=== PATIENT | male | born 1955 | race Caucasian/White ===

== ENCOUNTER 2017-08-07 20:22 | Inpatient (IN) | payer BC, OTHER ==
[~2017-08-07 20:22] MED LIST: ASPI81TA82 PO; FENO54TA PO; NIAC50TA PO
[2017-08-07] MEDS ORDERED: IOHEXOL 350 MG/ML 10 ML VIAL (for RAD DIAG) IVCONTRAST ONE (20:23)
[2017-08-07 20:30] VITALS: BP 130/74; PULSE 82; RESP 20; TEMP 98; O2SAT 97
[2017-08-07] MEDS ORDERED: SODIUM CHLOR 0.9% 1000 ML INJ 1,000 ML IV SCH (21:07)
[2017-08-07 21:10] VITALS: BP 123/79; PULSE 74; RESP 18; O2SAT 96
[2017-08-07] MEDS ORDERED: MORPHINE SULFATE 4 MG/ML INJ IV PUSH ONE (21:15)
[2017-08-07] MEDS ORDERED: PANTOPRAZOLE SODIUM 40 MG VIAL IVP ONE (21:15)
[2017-08-07] MEDS ORDERED: ONDANSETRON HCL 4 MG/2 ML VIAL IVP ONE (21:15)
[2017-08-07] MEDS ORDERED: SODIUM CHLORIDE 0.9% FLUSH 10 ML FLUSH IV FLUSH PRN ×2 (21:15→23:15)
--- NOTE | 2017-08-07 21:15 | PD ---
HPI Chief Complaint: Abdominal Pain Time Seen by Provider: 21:04 Travel History International Travel<30 days: No Contact w/Intl Traveler<30days: No Traveled to known affect area: No History of Present Illness HPI 62-year-old male complains of abdominal pain, nausea vomiting and diarrhea. Patient states that the symptoms started 2 weeks ago and got worse since then. Patient states abdominal pain and cramping pain localized upper abdomen. Patient denies any pain radiation. Patient denies any headache. Patient denies any chest pain or shortness of breath. Patient denies dysuria frequency. Patient denies any fever chills. Patient has history hypertension, diabetes, hyperlipidemia. Patient status post appendectomy. On a scale of 1- 10 the pain is a 6. PFSH Past Medical History Hx Anticoagulant Therapy: Yes (ASA 81 MGS) High Cholesterol: Yes Diabetes: Yes Diminished Hearing: No Social History Alcohol Use: Yes (VERY RARELY) Tobacco Use: No Allergies-Medications (Allergen,Severity, Reaction): Coded Allergies: No Known Allergies (Verified Adverse Reaction, Unknown, 08/07/17) Reported Meds & Prescriptions Reported Meds & Active Scripts Active Reported Invokana (Canagliflozin) 100 Mg Tab 100 Mg PO DAILY Take before 1st meal of day. Aspirin 81 Mg Chew 81 Mg CHEW DAILY Glipizide 5 Mg Tab 5 Mg PO BIDAC Take 30 minutes before a meal Atorvastatin (Atorvastatin Calcium) 40 Mg Tab 40 Mg PO HS Lisinopril 20 Mg Tab 20 Mg PO DAILY Metformin (Metformin HCl) 1,000 Mg Tab 1,000 Mg PO BIDPC Review of Systems General / Constitutional: No: Fever Eyes: No: Visual changes HENT: No: Headaches Cardiovascular: No: Chest Pain or Discomfort Respiratory: No: Shortness of Breath Gastrointestinal: Positive: Nausea, Vomiting, Diarrhea, Abdominal Pain Genitourinary: No: Dysuria Musculoskeletal: No: Pain Skin: No Rash Neurologic: No: Weakness Psychiatric: No: Depression Endocrine: No: Polydipsia Hematologic/Lymphatic: No: Easy Bruising Physical Exam Narrative GENERAL: Well-nourished, well-developed patient. SKIN: Focused skin assessment warm/dry. HEAD: Normocephalic. EYES: No scleral icterus. No injection or drainage. NECK: Supple, trachea midline. No JVD or lymphadenopathy. CARDIOVASCULAR: Regular rate and rhythm without murmurs, gallops, or rubs. RESPIRATORY: Breath sounds equal bilaterally. No accessory muscle use. GASTROINTESTINAL: Abdomen soft, nondistended. Patient has moderate tenderness to palpation epigastric area. No rebound tenderness. No mass. MUSCULOSKELETAL: No cyanosis, or edema. BACK: Nontender without obvious deformity. No CVA tenderness. Neurologic exam normal. Data Data Last Documented VS Vital Signs Date Time Temp Pulse Resp B/P (MAP) Pulse Ox O2 Delivery O2 Flow Rate FiO2 08/07/17 22:08 80 16 113/73 (86) 96 Room Air 08/07/17 20:30 98.0 Orders Orders Complete Blood Count With Diff (08/07/17 21:07) Comprehensive Metabolic Panel (08/07/17 21:) Lipase (08/07/17:07) Prothrombin Time / Inr (Pt) (08/07/17:) Act Partial Throm Time (Ptt) (08/07/17:) Urinalysis - C+S If Indicated (08/07/17 21:07) Ct Abd/Pel W Iv Contrast(Rout) (08/07/17 21:07) Iv Access Insert/Monitor (08/07/17 21:07) Ecg Monitoring (08/07/17 21:07) Oximetry (08/07/17 21:07) Morphine Inj (Morphine Inj) (08/07/17 21:15) Ondansetron Inj (Zofran Inj) (08/07/17 21:15) Pantoprazole Inj (Protonix Inj) (08/07/17 21:15) Sodium Chlor 0.9% 1000 Ml Inj (Ns 1000 M (08/07/17 21:07) Sodium Chloride 0.9% Flush (Ns Flush) (08/07/17 21:15) Iohexol 350 Inj (Omnipaque 350 Inj) (08/07/17 20:23) Piperacil-Tazo 4.5 Gm Premix (Zosyn 4.5 (08/08/17 06:00) Bedside Glucose EMA.CSUGAR (08/07/17 23:07) Blood Glucose Goal (Criteria) (08/07/17 23:07) Hypoglycemia 70 Mg/Dl Or < (08/07/17 23:07) Notify Dr: Other (08/07/17 23:07) Dextrose 50% In Nik (Vial) Inj (D50w (Vi (08/07/17 23:15) Glucagon Inj (Glucagon Inj) (08/07/17 23:15) Insulin Aspart Supplemtl Scale (Novolog (08/08/17 08:00) Admit To Inpatient (08/07/17 ) Vital Signs (Adult) Q4H (08/07/17 23:07) Activity Oob With Assistance (08/07/17 23:07) Intake + Output EMA.QSHIFT (08/07/17 23:07) Diet Npo (08/08/17 Breakfast) Sodium Chlor 0.9% 1000 Ml Inj (Ns 1000 M (08/07/17 23:07) Sodium Chloride 0.9% Flush (Ns Flush) (08/07/17 23:15) Sodium Chloride 0.9% Flush (Ns Flush) (08/08/17 09:00) Ondansetron Inj (Zofran Inj) (08/07/17 23:15) Comprehensive Metabolic Panel (08/08/17 06:00) Complete Blood Count With Diff (08/08/17 06:00) Prothrombin Time / Inr (Pt) (08/08/17 06:00) Pharmacologic Contraindication (08/07/17 23:07) Morphine Inj (Morphine Inj) (08/07/17 23:15) Docusate Sodium-Senna (Yamilet-Colace) (08/08/17 09:00) Magnesium Hydroxide Liq (Milk Of Magnesi (08/07/17 23:15) Sennosides (Senokot) (08/07/17 23:15) Bisacodyl Supp (Dulcolax Supp) (08/07/17 23:15) Lactulose Liq (Lactulose Liq) (08/07/17 23:15) Inpatient Certification (08/07/17 ) Abdomen, Flat & Upright (08/08/17 06:00) Labs Laboratory Tests Test 08/07/17 21:10 White Blood Count 20.3 TH/MM3 Red Blood Count 5.43 MIL/MM3 Hemoglobin 16.5 GM/DL Hematocrit 48.4 % Mean Corpuscular Volume 89.2 FL Mean Corpuscular Hemoglobin 30.3 PG Mean Corpuscular Hemoglobin Concent 34.0 % Red Cell Distribution Width 13.0 % Platelet Count 287 TH/MM3 Mean Platelet Volume 7.8 FL Neutrophils (%) (Auto) 86.9 % Lymphocytes (%) (Auto) 6.9 % Monocytes (%) (Auto) 2.8 % Eosinophils (%) (Auto) 1.1 % Basophils (%) (Auto) 2.3 % Neutrophils # (Auto) 17.6 TH/MM3 Lymphocytes # (Auto) 1.4 TH/MM3 Monocytes # (Auto) 0.6 TH/MM3 Eosinophils # (Auto) 0.2 TH/MM3 Basophils # (Auto) 0.5 TH/MM3 CBC Comment DIFF FINAL Differential Comment Prothrombin Time 10.9 SEC Prothromb Time International Ratio 1.1 RATIO Activated Partial Thromboplast Time 23.6 SEC Urine Color YELLOW Urine Turbidity CLEAR Urine pH 5.5 Urine Specific [place] 1.015 Urine Protein NEG mg/dL Urine Glucose (UA) 1000 OR GREATER mg/dL Urine Ketones TRACE mg/dL Urine Occult Blood NEG Urine Nitrite NEG Urine Bilirubin NEG Urine Urobilinogen 0.2 MG/DL Urine Leukocyte Esterase NEG Urine Squamous Epithelial Cells 0-5 /hpf Microscopic Urinalysis Comment CULT NOT INDICATED Blood Urea Nitrogen 16 MG/DL Creatinine 1.10 MG/DL Random Glucose 169 MG/DL Total Protein 8.1 GM/DL Albumin 3.7 GM/DL Calcium Level 8.9 MG/DL Alkaline Phosphatase 57 U/L Aspartate Amino Transf (AST/SGOT) 30 U/L Alanine Aminotransferase (ALT/SGPT) 46 U/L Total Bilirubin 0.7 MG/DL Sodium Level 136 MEQ/L Potassium Level 4.2 MEQ/L Chloride Level 105 MEQ/L Carbon Dioxide Level 23.1 MEQ/L Anion Gap 8 MEQ/L Estimat Glomerular Filtration Rate 67 ML/MIN Lipase 234 U/L [facility] Medical Decision Making Medical Screen Exam Complete: Yes Emergency Medical Condition: Yes Interpretation(s) 22:57 PM. CBC WBC 20.3. 86 neutrophil. CMP within normal limits. UA is negative. CT scan abdomen pelvis shows enteritis with mild ileus. Differential Diagnosis Differential diagnosis including gastritis, PUD, pancreatitis, cholecystitis, colitis, UTI, pyelonephritis, nephrolithiasis. Narrative Course 62-year-old male with upper abdominal pain, nausea vomiting diarrhea. Normal saline solution 1 25 cc an hour. Protonix 40 mg IV. Morphine 2 mg IV. Zofran 4 mg IV. Zosyn and Flagyl IV will be given. Diagnosis Primary Impression: Enteritis Additional Impression: Ileus Admitting Information Admitting Physician Requests: Admit Fareed Gambino MD Aug 07, 2017 21:15
[2017-08-07 21:28] LABS: AUTOMATED NEUTROPHIL # 17.6 TH/MM3 (1.8-7.7); BASOPHIL # 0.5 TH/MM3 (0-0.2); BASOPHIL % 2.3 % (0.0-2.0); EOSINOPHIL # 0.2 TH/MM3 (0-0.4); EOSINOPHIL % 1.1 % (0.0-4.0); HEMATOCRIT 48.4 % (39.0-51.0); HEMOGLOBIN 16.5 GM/DL (13.0-17.0); LYMPH % 6.9 % (9.0-44.0); LYMPHOCYTE # 1.4 TH/MM3 (1.0-4.8); MEAN CELL VOLUME 89.2 FL (80.0-100.0); MEAN CORPUSCULAR HEMOGLOBIN 30.3 PG (27.0-34.0); MEAN PLATELET VOLUME 7.8 FL (7.0-11.0); MONO % 2.8 % (0.0-8.0); MONOCYTE # 0.6 TH/MM3 (0-0.9); NEUT % 86.9 % (16.0-70.0); PLATELET COUNT 287 TH/MM3 (150-450); RED BLOOD COUNT 5.43 MIL/MM3 (4.50-5.90); WHITE BLOOD COUNT 20.3 TH/MM3 (4.0-11.0)
[2017-08-07 21:30] LABS: BILIRUBIN, URINE NEG (NEG); BLOOD, URINE NEG (NEG); GLUCOSE,URINE 1000 OR GREATER mg/dL (NEG); KETONE, URINE TRACE mg/dL (NEG); NITRITE,URINE NEG (NEG); PH, URINE 5.5 (5.0-8.5); URINE COLOR YELLOW (YELLW/STRAW); URINE LEUKOCYTE ESTERASE NEG (NEG)
[2017-08-07 21:34] LABS: SQUAMOUS EPITHELIAL CELL URINE 0-5 /hpf (0-5)
[2017-08-07 21:39] LABS: CHLORIDE 105 MEQ/L (98-107); SODIUM (NA) 136 MEQ/L (136-145)
[2017-08-07 21:43] LABS: ALBUMIN 3.7 GM/DL (3.4-5.0); BICARBONATE 23.1 MEQ/L (21.0-32.0); BLOOD UREA NITROGEN 16 MG/DL (7-18); CALCIUM 8.9 MG/DL (8.5-10.1); GLUCOSE,RANDOM 169 MG/DL (74-106)
[2017-08-07 21:45] LABS: INTERNATIONAL NORMALIZED RATIO 1.1 RATIO; PROTHROMBIN TIME - PATIENT 10.9 SEC (9.8-11.6)
[2017-08-07 21:46] LABS: ALT (GPT) 46 U/L (12-78); AST (GOT) 30 U/L (15-37); GLOMERULAR FILTRATION RATE 67 ML/MIN (>89)
[2017-08-07 21:48] LABS: TOTAL BILIRUBIN ADULT 0.7 MG/DL (0.2-1.0); TOTAL PROTEIN 8.1 GM/DL (6.4-8.2)
[2017-08-07 21:49] LABS: ALKALINE PHOSPHATASE 57 U/L (45-117)
[2017-08-07] MEDS ORDERED: ASPI-516 CHEW (21:50)
[2017-08-07] MEDS ORDERED: CANA100T PO (21:50)
[2017-08-07] MEDS ORDERED: METF1000 PO (21:50)
[2017-08-07] MEDS ORDERED: ATOR40TA16 PO (21:50)
[2017-08-07] MEDS ORDERED: GLIP5TAB8 PO (21:50)
[2017-08-07] MEDS ORDERED: LISI-515 PO (21:50)
[2017-08-07 22:08] VITALS: BP 113/73; PULSE 80; RESP 16; O2SAT 96
--- NOTE | 2017-08-07 22:54 | RADRPT ---
EXAM DATE/TIME: 08/07/2017 22:22 [facility] COMPARISON: No previous studies available for comparison. INDICATIONS : Abdomen pain with nausea and vomiting. IV CONTRAST: 75 cc Omnipaque 350 (iohexol) IV ORAL CONTRAST: No oral contrast ingested. RADIATION DOSE: 18.88 CTDIvol (mGy) MEDICAL HISTORY : Hypercholesterolemia. Diabetes mellitus type 2. SURGICAL HISTORY : None. ENCOUNTER: Initial ACUITY: 2 weeks PAIN SCALE: 6/10 LOCATION: Bilateral abdomen TECHNIQUE: Volumetric scanning of the abdomen and pelvis was performed. Using automated exposure control and ad justment of the mA and/or kV according to patient size, radiation dose was kept as low as reasonably achievable to obtain optimal diagnostic quality images. DICOM format image data is available electro nically for review and comparison. FINDINGS: Limited bases are clear. Mild fatty liver. Spleen, adrenals, pancreas unremarkable. 2.9 cm cyst lower pole right kidney. Left kidney unremarkable. There is a small amount of free fluid in the pelvis. Several air-fluid levels seen in the upper abdom en, probably mild ileus. There is some mild mesenteric edema in the left abdomen near several mildly dilated loops of bowel. No free air. No acute bony abnormalities. CONCLUSION: Probable enteritis with mild ileus in the left abdomen and some mesenteric edema with borderline mura l thickening of small bowel. There is a small amount of fluid between several loops of small bowel in the left midabdomen.. There is some fecalization of small bowel contents on the left. If Abdominal p ain and vomiting persists consider followup examination to exclude obstruction. Bladimir Cao MD on August 07, 2017 at 22:47 Board Certified Radiologist. This report was verified electronically.
[2017-08-07 23:13] VITALS: BP 136/64; PULSE 83; RESP 18; O2SAT 95
[2017-08-07] MEDS ORDERED: MORPHINE SULFATE 2 MG/ML SYRINGE IV PUSH PRN (23:15)
[2017-08-07] MEDS ORDERED: SENNOSIDES 8.6 MG TAB PO PRN (23:15)
[2017-08-07] MEDS ORDERED: ONDANSETRON HCL 4 MG/2 ML VIAL IVP PRN (23:15)
[2017-08-07] MEDS ORDERED: LACTULOSE SYRUP 20 GM/30 ML CUP PO PRN (23:15)
[2017-08-07] MEDS ORDERED: MAGNESIUM HYDROXIDE SUSP 30 ML CUP PO PRN (23:15)
[2017-08-07] MEDS ORDERED: GLUCAGON 1 MG/ML VIAL OTHER PRN (23:15)
[2017-08-07] MEDS ORDERED: DEXTROSE 50% IN WATER 50 ML VIAL(D50) IV PUSH PRN (23:15)
[2017-08-07] MEDS ORDERED: BISACODYL 10 MG SUPP RECTAL PRN (23:15)
[2017-08-07] MEDS: SODIUM CHLOR 0.9% 1000 ML INJ 1,000 ML IV SCH (23:21)
[2017-08-08] VITALS (11 sets, daily range): BP systolic 95–133; BP diastolic 63–86; PULSE 61–82; RESP 15–20; TEMP 96–97.7; O2SAT 93–100
[2017-08-08] MEDS ORDERED: PIPERACIL-TAZO 3.375 GM PREMIX 50 ML IV ONE (00:30)
[2017-08-08] MEDS ORDERED: metroNIDAZOLE 500 MG INJ 100 ML IV ONE (00:30)
[2017-08-08 05:34] LABS: AUTOMATED NEUTROPHIL # 4.3 TH/MM3 (1.8-7.7); BASOPHIL # 0.1 TH/MM3 (0-0.2); BASOPHIL % 0.7 % (0.0-2.0); EOSINOPHIL # 0.3 TH/MM3 (0-0.4); EOSINOPHIL % 3.7 % (0.0-4.0); HEMATOCRIT 37.8 % (39.0-51.0); HEMOGLOBIN 12.4 GM/DL (13.0-17.0); LYMPH % 35.9 % (9.0-44.0); LYMPHOCYTE # 2.9 TH/MM3 (1.0-4.8); MEAN CELL VOLUME 92.6 FL (80.0-100.0); MEAN CORPUSCULAR HEMOGLOBIN 30.3 PG (27.0-34.0); MEAN CORPUSCULAR HGB CONC 32.7 % (32.0-36.0); MEAN PLATELET VOLUME 7.7 FL (7.0-11.0); MONO % 5.4 % (0.0-8.0); MONOCYTE # 0.4 TH/MM3 (0-0.9); NEUT % 54.3 % (16.0-70.0); PLATELET COUNT 280 TH/MM3 (150-450); RED BLOOD COUNT 4.08 MIL/MM3 (4.50-5.90); RED CELL DISTRIBUTION WIDTH 11.8 % (11.6-17.2)
[2017-08-08 05:42] LABS: CHLORIDE 103 MEQ/L (98-107); SODIUM (NA) 139 MEQ/L (136-145)
[2017-08-08 05:44] LABS: PROTHROMBIN TIME - PATIENT 10.2 SEC (9.8-11.6)
[2017-08-08 05:45] LABS: ALBUMIN 3.7 GM/DL (3.4-5.0); BICARBONATE 30.9 MEQ/L (21.0-32.0); CALCIUM 8.8 MG/DL (8.5-10.1); GLUCOSE,RANDOM 93 MG/DL (74-106)
[2017-08-08 05:46] LABS: BLOOD UREA NITROGEN 7 MG/DL (7-18)
[2017-08-08 05:48] LABS: ALT (GPT) 22 U/L (12-78); AST (GOT) 11 U/L (15-37)
[2017-08-08 05:49] LABS: CREATININE 0.99 MG/DL (0.60-1.30); GLOMERULAR FILTRATION RATE 76 ML/MIN (>89)
[2017-08-08 05:50] LABS: TOTAL BILIRUBIN ADULT 0.3 MG/DL (0.2-1.0); TOTAL PROTEIN 7.3 GM/DL (6.4-8.2)
[2017-08-08 05:51] LABS: ALKALINE PHOSPHATASE 53 U/L (45-117)
[2017-08-08] MEDS ORDERED: PIPERACIL-TAZO 4.5 GM PREMIX 100 ML IV SCH (06:00)
--- NOTE | 2017-08-08 06:12 | RADRPT ---
EXAM DATE/TIME: 08/08/2017 05:46 [facility] COMPARISON: CT ABDOMEN & PELVIS W CONTRAST, August 07, 2017, 22:22. INDICATIONS : Follow up ileus. MEDICAL HISTORY : Hypercholesterolemia. Diabetes mellitus type 2. SURGICAL HISTORY : None. ENCOUNTER: Subsequent ACUITY: 1 day PAIN SCORE: 4/10 LOCATION: Bilateral abdomen FINDINGS: Supine and upright views of the abdomen were performed. The abdominal bowel gas pattern is normal. No air fluid levels are seen. No abnormal masses, calcifications, or organomegaly is seen. The visu alized lower lungs are clear. No evidence of free intraperitoneal gas. The osseous structures are u nremarkable. CONCLUSION: 1. No evidence of ileus or obstruction. Barak Álvarez MD on August 08, 2017 at 6:09 Board Certified Radiologist. This report was verified electronically.
[2017-08-08] MEDS: INSULIN ASPART SUPPLEMENTAL SCALE SQ SCH ×4 (08:00→20:18)
--- NOTE | 2017-08-08 08:57 | HHI.HP ---
HPI Service [facility] Hospitalists Primary Care Physician Eber Linares MD Admission Diagnosis Enteritis. Ileus. Diagnoses: Chief Complaint: Abdominal pain, nausea, vomiting. Travel History International Travel<30 Days: No Contact w/Intl Traveler <30 Da: No Traveled to Known Affected Are: No History of Present Illness The patient is a 62-year-old male with past medical history of hypertension, hyperlipidemia and diabetes mellitus type 2 who presented to [facility] complaining of 2 weeks of umbilical abdominal pain associated with nausea, vomiting and diarrhea. The patient states that he has been having intermittent periumbilical pain associated with nausea vomiting and diarrhea. Denies fevers or chills. Describes the per medical pain as a stabbing, nonradiating, 10/10 its max intensity, does not seem to pinpoint any aggravating or alleviating factors. Patient states that currently he feels much better, however still having abdominal pain and is complaining of abdominal distention. The patient otherwise denies any chest pain, shortness of breath, cough, dysuria. Denies any other sick contacts or recent travel. Review of Systems As per HPI, other systems reviewed by me and negative. Past Family Social History Past Medical History 1. Hyperlipidemia. 2. Diabetes mellitus type 2. 3. Hypertension. Past Surgical History 1. Bilateral l shoulder surgeries. 2. Appendectomy. Reported Medications Reported Meds & Active Scripts Active Reported Invokana (Canagliflozin) 100 Mg Tab 100 Mg PO DAILY Take before 1st meal of day. Aspirin 81 Mg Chew 81 Mg CHEW DAILY Glipizide 5 Mg Tab 5 Mg PO BIDAC Take 30 minutes before a meal Atorvastatin (Atorvastatin Calcium) 40 Mg Tab 40 Mg PO HS Lisinopril 20 Mg Tab 20 Mg PO DAILY Metformin (Metformin HCl) 1,000 Mg Tab 1,000 Mg PO BIDPC Allergies: Coded Allergies: No Known Allergies (Verified Allergy, Unknown, 08/07/17) Active Ordered Medications Current Medications Medications (Trade) Dose Ordered Sig/Samantha Route Start Time Stop Time Status Last Admin Piperacillin Sod/ Tazobactam Sod 100 ml @ 200 mls/hr Q6H IV 08/08/17 06:00 08/08/17 06:02 (D50w (Vial) Inj) 50 ml UNSCH PRN IV PUSH 08/07/17 23:15 (Glucagon Inj) 1 mg UNSCH PRN OTHER 08/07/17 23:15 (NovoLOG SUPPLEMENTAL SCALE) 1 ACHS SLIDING SCALE SQ 08/08/17 08:00 Sodium Chloride 1,000 ml @ 100 mls/hr Q10H IV 08/07/17 23:07 08/07/17 23:21 (NS Flush) 2 ml UNSCH PRN IV FLUSH 08/07/17 23:15 (NS Flush) 2 ml BID IV FLUSH 08/08/17 09:00 (Zofran Inj) 4 mg Q6H PRN IVP 08/07/17 23:15 (Morphine Inj) 2 mg Q3H PRN IV PUSH 08/07/17 23:15 (Yamilet-Colace) 1 tab BID PO 08/08/17 09:00 (Milk Of Magnesia Liq) 30 ml Q12H PRN PO 08/07/17 23:15 (Dulcolax Supp) 10 mg DAILY PRN RECTAL 08/07/17 23:15 (Lactulose Liq) 30 ml DAILY PRN PO 08/07/17 23:15 Family History Patient's father from an unknown type of cancer. Patient's mother has diabetes and she is 90 years old and alive. Social History The patient is a former smoker quit smoking 15 years ago. The patient denies alcohol use. The patient denies illicit drug use. The patient is and does not have children. Physical Exam Vital Signs Vital Signs Date Time Temp Pulse Resp B/P (MAP) Pulse Ox O2 Delivery O2 Flow Rate FiO2 08/08/17 07:03 08/08/17 06:03 67 16 108/63 (78) 95 Room Air 08/08/17 05:00 66 16 110/63 (79) 93 Room Air 08/08/17 04:00 62 16 116/65 (82) 96 Room Air 08/08/17 03:05 82 16 133/67 (89) 96 Room Air 08/08/17 02:05 74 18 102/64 (77) 93 Room Air 08/08/17 01:05 74 18 103/86 (92) 93 Room Air 08/08/17 00:13 67 18 95/64 (74) 94 Room Air 08/07/17 23:13 83 18 136/64 (88) 95 Room Air 08/07/17 22:08 80 16 113/73 (86) 96 Room Air 08/07/17 21:31 16 08/07/17 21:10 74 18 123/79 (94) 96 Room Air 08/07/17 21:00 18 08/07/17 20:30 98.0 82 20 130/74 (92) 97 Physical Exam GENERAL: This is a well-nourished, well-developed patient, in no apparent distress. SKIN: No rashes, ecchymoses or lesions. Cool and dry. HEAD: Atraumatic. Normocephalic. No temporal or scalp tenderness. EYES: Pupils equal round and reactive. Extraocular motions intact. No scleral icterus. No injection or drainage. ENT: Nose without bleeding, purulent drainage or septal hematoma. Throat without erythema, tonsillar hypertrophy or exudate. Uvula midline. Airway patent. NECK: Trachea midline. No JVD or lymphadenopathy. Supple, nontender, no meningeal signs. CARDIOVASCULAR: Regular rate and rhythm without murmurs, gallops, or rubs. RESPIRATORY: Clear to auscultation. Breath sounds equal bilaterally. No wheezes , rales, or rhonchi. GASTROINTESTINAL: Abdomen is soft, distended, diffusely tender to palpation more prominent on periumbilical region. No rebound tenderness or guarding noted. MUSCULOSKELETAL: Extremities without clubbing, cyanosis, or edema. No joint tenderness, effusion, or edema noted. No calf tenderness. Negative Homans sign bilaterally. NEUROLOGICAL: Awake and alert. Cranial nerves II through XII intact. Motor and sensory grossly within normal limits. Five out of 5 muscle strength in all muscle groups. Normal speech. Laboratory Laboratory Tests Test 08/07/17 21:10 08/08/17 05:15 White Blood Count 20.3 8.0 Red Blood Count 5.43 4.08 Hemoglobin 16.5 12.4 Hematocrit 48.4 37.8 Mean Corpuscular Volume 89.2 92.6 Mean Corpuscular Hemoglobin 30.3 30.3 Mean Corpuscular Hemoglobin Concent 34.0 32.7 Red Cell Distribution Width 13.0 11.8 Platelet Count 287 280 Mean Platelet Volume 7.8 7.7 Neutrophils (%) (Auto) 86.9 54.3 Lymphocytes (%) (Auto) 6.9 35.9 Monocytes (%) (Auto) 2.8 5.4 Eosinophils (%) (Auto) 1.1 3.7 Basophils (%) (Auto) 2.3 0.7 Neutrophils # (Auto) 17.6 4.3 Lymphocytes # (Auto) 1.4 2.9 Monocytes # (Auto) 0.6 0.4 Eosinophils # (Auto) 0.2 0.3 Basophils # (Auto) 0.5 0.1 CBC Comment DIFF FINAL DIFF FINAL Differential Comment Prothrombin Time 10.9 10.2 Prothromb Time International Ratio 1.1 1.0 Activated Partial Thromboplast Time 23.6 Urine Color YELLOW Urine Turbidity CLEAR Urine pH 5.5 Urine Specific [place] 1.015 Urine Protein NEG Urine Glucose (UA) 1000 OR GREATER Urine Ketones TRACE Urine Occult Blood NEG Urine Nitrite NEG Urine Bilirubin NEG Urine Urobilinogen 0.2 Urine Leukocyte Esterase NEG Urine Squamous Epithelial Cells 0-5 Microscopic Urinalysis Comment CULT NOT INDICATED Blood Urea Nitrogen 16 7 Creatinine 1.10 0.99 Random Glucose 169 93 Total Protein 8.1 7.3 Albumin 3.7 3.7 Calcium Level 8.9 8.8 Alkaline Phosphatase 57 53 Aspartate Amino Transf (AST/SGOT) 30 11 Alanine Aminotransferase (ALT/SGPT) 46 22 Total Bilirubin 0.7 0.3 Sodium Level 136 139 Potassium Level 4.2 3.7 Chloride Level 105 103 Carbon Dioxide Level 23.1 30.9 Anion Gap 8 5 Estimat Glomerular Filtration Rate 67 76 Lipase 234 Result Diagram: 08/08/1715 08/08/17 0515 Imaging Last Impressions Abdomen X-Ray 08/08/17 0600 Signed Impressions: Service Date/Time: Tuesday, August 08, 2017 05:46 - CONCLUSION: 1. No evidence of ileus or obstruction. Barak Álvarez MD Abdomen/Pelvis CT 08/07/172106 Signed Impressions: Service Date/Time: Monday, August 07, 2017 22:22 - CONCLUSION: Probable enteritis with mild ileus in the left abdomen and some mesenteric edema with borderline mural thickening of small bowel. There is a small amount of fluid between several loops of small bowel in the left midabdomen.. There is some fecalization of small bowel contents on the left. If Abdominal pain and vomiting persists consider followup examination to exclude obstruction. Bladimir Cao MD Images reviewed by Caprinj luis VTE Risk Assessment Caprini VTE Risk Assessment: Mod/High Risk (score >= 2) Caprini Risk Assessment Model Point Value = 1 Point Value = 2 Point Value = 3 Point Value = 5 Age 41-60 Minor surgery BMI > 25 kg/m2 Swollen legs Varicose veins or History of unexplained or recurrent spontaneous Oral contraceptives or hormone replacement Sepsis (< 1 month) Serious lung disease, including pneumonia (< 1 month) Abnormal pulmonary function Acute myocardial infarction Congestive heart failure (< 1 month) History of inflammatory bowel disease Medical patient at bed rest Age 61-74 Arthroscopic surgery Major open surgery (> 45 min) Laparoscopic surgery (> 45 min) Malignancy Confined to bed (> 72 hours) Immobilizing plaster cast Central venous access Age >= 75 History of VTE Family history of VTE Factor V Leiden Prothrombin [id number] Lupus anticoagulant Anticardiolipin antibodies Elevated serum homocysteine Heparin-induced thrombocytopenia Other congenital or acquired thrombophilia Stroke (< 1 month) Elective arthroplasty Hip, pelvis, or leg fracture Acute spinal cord injury (< 1 month) Prophylaxis Regimen Total Risk Factor Score Risk Level Prophylaxis Regimen 0-1 Low Early ambulation 2 Moderate Order ONE of the following: *Sequential Compression Device (SCD) *Heparin 5000 units SQ BID 3-4 Higher Order ONE of the following medications: *Heparin 5000 units SQ TID *Enoxaparin/Lovenox 40 mg SQ daily (WT < 150 kg, CrCl > 30 mL/min) *Enoxaparin/Lovenox 30 mg SQ daily (WT < 150 kg, CrCl > 10-29 mL/min) *Enoxaparin/Lovenox 30 mg SQ BID (WT < 150 kg, CrCl > 30 mL/min) AND/OR *Sequential Compression Device (SCD) 5 or more Highest Order ONE of the following medications: *Heparin 5000 units SQ TID (Preferred with Epidurals) *Enoxaparin/Lovenox 40 mg SQ daily (WT < 150 kg, CrCl > 30 mL/min) *Enoxaparin/Lovenox 30 mg SQ daily (WT < 150 kg, CrCl > 10-29 mL/min) *Enoxaparin/Lovenox 30 mg SQ BID (WT < 150 kg, CrCl > 30 mL/min) AND *Sequential Compression Device (SCD) Assessment and Plan Problem List: (1) Enteritis ICD Code: K52.9 - Noninfective gastroenteritis and colitis, unspecified Status: Acute Plan: As seen on CT of the abdomen and pelvis previously described. Abdominal x-ray does not show any evidence of ileus or obstruction. Patient status post IV Zosyn and IV Flagyl in the emergency department Start the patient on ciprofloxacin and Flagyl IV Supportive care with IV fluids Consult GI. Check stool studies for Gram stain, parasites, C. difficile. (2) Ileus ICD Code: K56.7 - Ileus, unspecified Status: Acute Plan: Manage conservatively for now. Serial abdominal exams. (3) Abdominal pain ICD Code: R10.9 - Unspecified abdominal pain Status: Acute Plan: Pain secondary to enteritis possible ileus. Pain controlled with IV morphine. (4) Diabetes mellitus, type 2 ICD Code: E11.9 - Type 2 diabetes mellitus without complications Status: Chronic Plan: Hold oral hypoglycemics. Placed on SSI with insulin NovoLog monitor Accu-Cheks. (5) Nausea & vomiting ICD Code: R11.2 - Nausea with vomiting, unspecified Status: Acute Plan: Due to enteritis and ileus. Zofran IV as needed for nausea vomiting. (6) HTN (hypertension) ICD Code: I10 - Essential (primary) hypertension Plan: Blood pressure is stable. Continue home antihypertensive medication. Patient is on lisinopril 20 mg p.o. daily. (7) Hyperlipidemia ICD Code: E78.5 - Hyperlipidemia, unspecified Plan: Continue statin. Check fasting lipid profile. (8) Leukocytosis ICD Code: D72.829 - Elevated white blood cell count, unspecified Plan: Suspect stress induced. WBC trended down from 20.3-8.0. Continue to monitor CBC. There are no fevers or signs of infection. UA negative. Check chest x-ray to rule out aspiration. Assessment and Plan DVT prophylaxis: SCDs, heparin of cutaneously. Code Status Full code Physician Certification 2 Midnight Certification Type: Admission for Inpatient Services Order for Inpatient Services The services are ordered in accordance with Medicare regulations or non- Medicare payer requirements, as applicable. In the case of services not specified as inpatient-only, they are appropriately provided as inpatient services in accordance with the 2-midnight benchmark. Estimated LOS (days): 2 days is the estimated time the patient will need to remain in the hospital, assuming treatment plan goals are met and no additional complications. Post-Hospital Plan: Not yet determined Problem Qualifiers (1) Diabetes mellitus, type 2: Qualified Codes: E11.9 - Type 2 diabetes mellitus without complications (2) HTN (hypertension): Qualified Codes: I10 - Essential (primary) hypertension (3) Leukocytosis: Qualified Codes: D72.829 - Elevated white blood cell count, unspecified Aris Steel MD Aug 08, 2017 08:57
[2017-08-08] MEDS: SODIUM CHLOR 0.9% 1000 ML INJ 1,000 ML IV SCH ×2 (09:07→20:17)
[2017-08-08] MEDS: HEPARIN SODIUM - SQ 10,000 UNITS/ML VIAL SQ SCH ×2 (09:54→18:31)
[2017-08-08] MEDS: CIPROFLOXACIN 400 MG PREMIX 200 ML IV SCH ×2 (09:54→18:30)
[2017-08-08] MEDS: metroNIDAZOLE 500 MG INJ 100 ML IV SCH ×2 (09:55→18:30)
[2017-08-08] MEDS: SODIUM CHLORIDE 0.9% FLUSH 10 ML FLUSH IV FLUSH SCH ×2 (09:55→20:16)
[2017-08-08] MEDS: DOCUSATE SODIUM 50 MG/SENNA 8.6 MG TAB PO SCH ×2 (09:55→20:16)
[2017-08-09] VITALS: BP 120/65; PULSE 62; RESP 20; TEMP 97.4; O2SAT 95
[2017-08-09] MEDS: HEPARIN SODIUM - SQ 10,000 UNITS/ML VIAL SQ SCH ×2 (02:05→09:46)
[2017-08-09] MEDS: metroNIDAZOLE 500 MG INJ 100 ML IV SCH ×2 (02:05→09:44)
[2017-08-09] MEDS: CIPROFLOXACIN 400 MG PREMIX 200 ML IV SCH ×2 (04:16→10:59)
[2017-08-09] MEDS: SODIUM CHLOR 0.9% 1000 ML INJ 1,000 ML IV SCH (06:30)
[2017-08-09] MEDS: INSULIN ASPART SUPPLEMENTAL SCALE SQ SCH ×2 (07:50→11:43)
[2017-08-09 08:00] VITALS: BP 122/69; PULSE 61; RESP 15; TEMP 97.2; O2SAT 94
[2017-08-09] MEDS: SODIUM CHLORIDE 0.9% FLUSH 10 ML FLUSH IV FLUSH SCH (09:00)
[2017-08-09] MEDS: DOCUSATE SODIUM 50 MG/SENNA 8.6 MG TAB PO SCH (09:22)
[2017-08-09] MEDS ORDERED: CIPR-9 PO (09:49)
[2017-08-09] MEDS ORDERED: METR-1 PO (09:49)
--- NOTE | 2017-08-09 09:49 | HHI.DCPOC ---
Discharge Care Plan Diagnosis: (1) Ileus (2) Enteritis Goals to Promote Your Health * To prevent worsening of your condition and complications * To maintain your health at the optimal level Directions to Meet Your Goals Take your medications as prescribed Follow your dietary instruction Follow activity as directed Keep your appointments as scheduled Take your immunizations and boosters as scheduled If your symptoms worsen call your PCP, if no PCP go to Urgent Care Center or Emergency Room Smoking is Dangerous to Your Health. Avoid second hand smoke Call the 24-hour hour crisis hotline for domestic abuse at Fausto Schneider Aug 09, 2017 09:49
--- NOTE | 2017-08-09 09:53 | HHI.DS ---
Discharge Summary Admission Date Aug 07, 2017 at 23:14 Discharge Date: Aug 09, 2017 Admitting Diagnosis Enteritis. Ileus. (1) Enteritis ICD Code: K52.9 - Noninfective gastroenteritis and colitis, unspecified Status: Acute (2) Ileus ICD Code: K56.7 - Ileus, unspecified Status: Acute (3) Abdominal pain ICD Code: R10.9 - Unspecified abdominal pain Status: Acute (4) Diabetes mellitus, type 2 ICD Code: E11.9 - Type 2 diabetes mellitus without complications Status: Chronic (5) Nausea & vomiting ICD Code: R11.2 - Nausea with vomiting, unspecified Status: Acute (6) HTN (hypertension) ICD Code: I10 - Essential (primary) hypertension (7) Hyperlipidemia ICD Code: E78.5 - Hyperlipidemia, unspecified (8) Leukocytosis ICD Code: D72.829 - Elevated white blood cell count, unspecified Procedures None Brief History - From Admission The patient is a 62-year-old male with past medical history of hypertension, hyperlipidemia and diabetes mellitus type 2 who presented to [facility] complaining of 2 weeks of umbilical abdominal pain associated with nausea, vomiting and diarrhea. The patient states that he has been having intermittent periumbilical pain associated with nausea vomiting and diarrhea. Denies fevers or chills. Describes the per medical pain as a stabbing, nonradiating, 10/10 its max intensity, does not seem to pinpoint any aggravating or alleviating factors. Patient states that currently he feels much better, however still having abdominal pain and is complaining of abdominal distention. The patient otherwise denies any chest pain, shortness of breath, cough, dysuria. Denies any other sick contacts or recent travel. CBC/BMP: 08/08/17 0515 08/08/17 0515 Significant Findings Laboratory Tests Test 08/07/17 21:10 08/08/17 05:15 White Blood Count 20.3 TH/MM3 (4.0-11.0) Neutrophils (%) (Auto) 86.9 % (16.0-70.0) Lymphocytes (%) (Auto) 6.9 % (9.0-44.0) Basophils (%) (Auto) 2.3 % (0.0-2.0) Neutrophils # (Auto) 17.6 TH/MM3 (1.8-7.7) Basophils # (Auto) 0.5 TH/MM3 (0-0.2) Activated Partial Thromboplast Time 23.6 SEC (24.3-30.1) Urine Glucose (UA) 1000 OR GREATER mg/dL Urine Ketones TRACE mg/dL (NEG) Random Glucose 169 MG/DL (74-106) Estimat Glomerular Filtration Rate 67 ML/MIN (>89) 76 ML/MIN (>89) Red Blood Count 4.08 MIL/MM3 (4.50-5.90) Hemoglobin 12.4 GM/DL (13.0-17.0) Hematocrit 37.8 % (39.0-51.0) Aspartate Amino Transf (AST/SGOT) 11 U/L (15-37) Imaging Last Impressions Abdomen X-Ray 08/08/17 0600 Signed Impressions: Service Date/Time: Tuesday, August 08, 2017 05:46 - CONCLUSION: 1. No evidence of ileus or obstruction. Barak Álvarez MD Abdomen/Pelvis CT 08/07/17 2107 Signed Impressions: Service Date/Time: Monday, August 07, 2017 22:22 - CONCLUSION: Probable enteritis with mild ileus in the left abdomen and some mesenteric edema with borderline mural thickening of small bowel. There is a small amount of fluid between several loops of small bowel in the left midabdomen.. There is some fecalization of small bowel contents on the left. If Abdominal pain and vomiting persists consider followup examination to exclude obstruction. Bladimir Cao MD PE at Discharge GENERAL: Well-developed, well-nourished, in no acute distress. alert and orientated HEENT: Head is normocephalic without any lesions or masses noted. Facial features are symmetric. Eyes: Pupils equal round reactive to light. Extraocular muscles are intact. Conjunctivae were clear. NECK: Supple without any masses. Trachea midline no deviation. No JVD, CARDIAC: Regular rhythm, regular rate. S1/S2 are heard. No murmurs gallops or rubs. LUNGS: Clear to auscultation bilaterally. No wheeze, rhonchi or rales. No use of accessory muscles on inspiration or expiration. ABDOMEN: Soft, nontender. Nondistended. Bowel sounds heard in all 4 quadrants. No organomegaly or masses. Negative rebound, negative guarding EXTREMITIES: No edema, pulses are equal bilaterally. No cyanosis or clubbing NEUROLOGY: Mood and affect appear appropriate. Cranial nerves II through XII grossly intact. Moving all extremities, speech is clear Hospital Course 62-year-old male who presented the hospital because of abdominal pain , nausea, vomiting, diarrhea. Patient had workup performed and found to have significant leukocytosis, CT scan showing enteritis and possible small focal area representing obstruction. Patient was admitted and started on empirical antibiotics include Cipro, Flagyl. Patient was continued on IV fluids., Pain control. Patient was on clear liquid diet. He was tolerating diet well. Diarrhea has resolved. Patient has not had any recurrent nausea or vomiting. Follow-up x-ray does not indicate any acute abnormality or ileus. Patient clinically improved today and very eager to go home. He is asking for a full diet. We will plan to advance his diet and discharge home after he tolerates. Patient clinically stable this time. Pt Condition on Discharge: Stable Discharge Disposition: Discharge Home Discharge Time: > 30 minutes Discharge Instructions DIET: Follow Instructions for: Heart Healthy Diet, Diabetic Diet Activities you can perform: Regular-No Restrictions Follow up Referrals: PCP Follow-up - 1 Week New Medications: Ciprofloxacin (Cipro) 500 Mg Tab 500 MG PO BID for Infection for 7 Days, #14 TAB 0 Refills Metronidazole (Flagyl) 500 Mg Tab 500 MG PO TID for Infection for 7 Days, TAB 0 Refills Continued Medications: Aspirin (Aspirin) 81 Mg Chew 81 MG CHEW DAILY, TAB 0 Refills Atorvastatin (Atorvastatin) 40 Mg Tab 40 MG PO HS for Cholesterol Management, #30 TAB 0 Refills Canagliflozin (Invokana) 100 Mg Tab 100 MG PO DAILY for Blood Sugar Management, #30 TAB 0 Refills Take before 1st meal of day. Glipizide (Glipizide) 5 Mg Tab 5 MG PO BIDAC for Blood Sugar Management, #60 TAB 0 Refills Take 30 minutes before a meal Lisinopril (Lisinopril) 20 Mg Tab 20 MG PO DAILY, #30 TAB 0 Refills Metformin (Metformin) 1,000 Mg Tab 1000 MG PO BIDPC for Blood Sugar Management, #60 TAB 0 Refills Fausto Schneider Aug 09, 2017 09:53
[2017-08-09 12:00] VITALS: BP_SYST 102; BP_SYST 125; BP_DIAS 70; BP_DIAS 76; PULSE 68; RESP 15; TEMP 96.6; O2SAT 95
--- NOTE | 2017-08-09 13:54 | HHI.GIFU ---
Subjective Remarks Patient is lying in bed, seems to be comfortable, less abdominal pain almost resolved, no diarrhea Objective Vitals I&O Vital Signs Date Time Temp Pulse Resp B/P (MAP) Pulse Ox O2 Delivery O2 Flow Rate FiO2 08/09/17 12:00 96.6 68 15 102/70 (81) 95 08/09/17 12:00 96.6 68 15 125/76 (92) 95 08/09/17 08:00 97.2 61 15 122/69 (86) 94 08/09/17 00:00 97.4 62 20 120/65 (83) 95 08/08/17 22:47 20 08/08/17 20:00 97.7 63 20 120/67 (84) 93 08/08/17 16:00 96.0 64 16 118/80 (93) 97 08/08/17 16:00 96.0 64 15 119/64 (82) 93 I/O 08/08/17 08/08/17 08/08/17 08/09/17 08/09/17 08/09/17 07:00 15:00 23:00 07:00 15:00 23:00 Intake Total 250 ml 200 ml 1640 ml 1720 ml Output Total 0 ml Balance 250 ml 200 ml 1640 ml 1720 ml Intake Oral 640 ml 720 ml IV Total 250 ml 200 ml 1000 ml 1000 ml Output Urine Total 0 ml Stool Total 0 ml # Voids 0 1 Physical Exam HEENT: Pupils round and reactive to light; normocephalic; atraumatic; no jaundice. Throat is clear. NECK: Neck is supple, no JVD, no lymphadenopathy. CHEST: Chest is clear to auscultation and percussion. CARDIAC: Regular rate and rhythm with no murmur gallop or rubs. ABDOMEN: Soft, nondistended, minimal discomfort in the mid abdomen ; no hepatosplenomegaly; bowel sounds are present in all four quadrants. EXTREMITIES: No clubbing, cyanosis, or edema. SKIN: Normal; no rash; no jaundice. SWITCH INSPECTOR: No focal deficits; alert and oriented times three. Assessment and Plan Plan Patient is a 62-year-old gentleman who presented with abdominal pain diarrhea nausea his symptoms completely resolved CT scans show enteritis most likely the reason for his symptoms and he was treated with antibiotic, currently doing well , he was on clear liquid, will advance diet as tolerated to regular diet, if he tolerated that, patient can be discharged on oral antibiotic for a few days and can follow-up as an outpatient Carrie Avila MD Aug 09, 2017 13:54
--- NOTE | 2017-08-10 09:03 | MB ---
cc: Carrie Avila MD DATE: 08/08/2017 REFERRING PHYSICIAN: Dr. Xie. HISTORY OF PRESENT ILLNESS: This is a pleasant 62-year-old gentleman who has been healthy. He was doing okay until about a few days ago when he started having, about 2 weeks ago, some abdominal discomfort, nausea, vomiting and diarrhea. The patient stated that the symptoms got worse a little bit with more nausea and vomiting and his brought him to the hospital because of that. The patient denied fever, no chills. The discomfort is centrally in the abdomen without significant radiation, not related to food, but the diarrhea was every time he eats. The vomiting also was after food. He denied any similar problem frequently. With his symptoms, he came to the hospital and was started on antibiotic and antiemetics and it subsided. He did not have any diarrhea since this morning. No other complaints. PAST MEDICAL HISTORY: Significant for diabetes, hypertension, hyperlipidemia, neck surgery, appendectomy and shoulder surgery. REVIEW OF SYSTEMS: All 12-point negative. MEDICATIONS: Reviewed in the chart. ALLERGIES: NO KNOWN DRUG ALLERGIES FAMILY HISTORY: Significant for unknown cancer and diabetes. SOCIAL HISTORY: He quit tobacco and alcohol 15 years ago. He denied any drugs. PHYSICAL EXAMINATION: GENERAL: Alert, oriented, in no acute distress. VITAL SIGNS: Stable. HEENT: Pupils round, reactive to light. NECK: Supple. CHEST: Clear to auscultation and percussion. CARDIAC: Regular rate and rhythm. No murmur or gallop. ABDOMEN: Soft, nondistended at this time. Positive bowel sounds. Minimal tenderness throughout the abdomen around the umbilical area. No rebound, no guarding. No hepatosplenomegaly. EXTREMITIES: No edema, clubbing or cyanosis. NEUROLOGIC: Neurologically intact. No focal abnormalities. PSYCHIATRIC: Psychologically appropriate. SKIN: Without jaundice. LABORATORY DATA: White count 8.0, down from 20.3, hemoglobin 12.4, platelet 280. INR 1.0. UA was positive for glucose. Chemistry normal liver function tests, normal BUN and creatinine, normal lipase at 230. IMAGING STUDIES: CT scan showed probable enteritis with mild ileus. Edema with a borderline mural thickening of the small bowel. ASSESSMENT AND PLAN: 1. A 62-year-old gentleman with most likely gastroenteritis and patient responding well to antiemetics. He did not get any pain medication recently. He was started on Cipro and Flagyl and he is doing okay. 2. We will monitor his blood sugar. 3. Continue hydration. 4. Start diet. 5. KUB this morning did not show any significant ileus. 6. If he tolerates diet and symptoms improve, he can switch to oral antibiotics and can be discharged. 7. The patient had a colonoscopy 2 years ago according to him by Dr. Mcgregor who used to be his budget specialist and not anymore according to the patient. He was told that his colonoscopy was clear for 10 years. Patient's primary care needs to look into that to make sure that there is no need for a colonoscopy for screening purposes. MD TORRIE Godinez/ , 06:21 PM , 06:57 PM
== END 2017-08-09 13:36 | disposition home or self-care (01) | DRG 392 ==
LOC: PHED 20:22 → PHEDA 23:14 → PHEDH 08-08 03:22 → PH3A 08-08 07:00
PROVIDERS: ADMIT Hospitalist; ATTEND Hospitalist
DX: K52.9 Noninfective gastroenteritis and colitis, unspecified (principal); I10 Essential (primary) hypertension; K56.7 Ileus, unspecified; E78.5 Hyperlipidemia, unspecified; E11.9 Type 2 diabetes mellitus without complications; E78.00 Pure hypercholesterolemia, unspecified; Z79.84 Long term (current) use of oral hypoglycemic drugs; Z83.3 Family history of diabetes mellitus; Z87.891 Personal history of nicotine dependence
CPT/HCPCS: 74019; 74177; 80053; 81001; 82948; 83690; 85025; 85610; 85730; 96361; 96374; 96375; C9113; J0744; J1644; J2270; J2405; J2543; J7030; Q9967